=== PATIENT | male | born 1955 | race Caucasian/White ===

== ENCOUNTER 2022-01-18 19:57 | Inpatient (IN) | payer OTHER, BC ==
[~2022-01-18] VITALS: Ht 193 cm; Wt 105.2 kg
[2022-01-18 20:22] VITALS: BP_SYST 168
[2022-01-18] MEDS ORDERED: ASPI-1393 PO (20:30)
[2022-01-18] MEDS ORDERED: LISI40TA13 PO (20:30)
[2022-01-18] MEDS ORDERED: LIP40 PO (20:30)
[2022-01-18] MEDS ORDERED: UBID50TA3 PO (20:31)
[2022-01-18] MEDS ORDERED: OMEG100037 PO (20:31)
[2022-01-18] MEDS ORDERED: VITD400 PO (20:32)
[2022-01-18 21:38] LABS: HEMOGLOBIN 16.8 g/dL (14.0-18.0); WHITE BLOOD COUNT (AUTO) 8.7 K/uL (4.8-10.8)
[2022-01-18 21:40] LABS: ANION GAP 9 (5-15); CALCIUM 9.5 mg/dL (8.4-11.0); CHLORIDE 102 mmol/L (98-107); CREATININE 1.57 mg/dL (0.55-1.30); GLUCOSE 152 mg/dL (70-99); POTASSIUM 4.3 mmol/L (3.5-5.1); SODIUM SERUM 137 mmol/L (136-145); UREA NITROGEN, BLOOD 26 mg/dL (8-21)
[2022-01-18 21:42] LABS: BASOPHILS % (AUTO) 0.5 % (0.0-2.0); EOSINOPHILS % (AUTO) 0.4 % (0.0-4.0); HEMATOCRIT 48.5 % (36-54); LYMPHOCYTES # (AUTO) 1.2 K/uL (1.0-5.5); LYMPHOCYTES % (AUTO) 13.5 % (20.5-51.5); MEAN CORPUSCULAR HEMOGLOBIN 30 pg (27-31); MEAN CORPUSCULAR HGB CONC 35 % (32-36); MEAN CORPUSCULAR VOLUME 86 fL (79.0-98.0); MONOCYTES # (AUTO) 0.9 K/uL (0.0-1.0); NEUTROPHILS # (AUTO) 6.6 K/uL (1.8-7.7); NEUTROPHILS % (AUTO) 75.6 % (40.0-70.0); PLATELET COUNT (AUTO) 290 K/uL (130-430); RED BLOOD CELL COUNT(AUTO) 5.66 MIL/uL (4.2-6.2); RED CELL DISTRIBUTION WIDTH 14.4 % (9.0-15.0)
[2022-01-18 21:43] LABS: GFR AFRICAN AMERICAN 57 mL/min (>90)
[2022-01-18 21:48] LABS: ALANINE AMINOTRANSFERASE 26 U/L (12-78); ALBUMIN 3.7 g/dL (3.4-4.8); AMYLASE 32 U/L (0-100); ASPARTATE AMINOTRANSFERASE 20 U/L (10-37); C-REACTIVE PROTEIN QUANT 2.3 mg/dL (0-0.5); LIPASE 47 U/L (73-393); TOTAL BILIRUBIN 0.8 mg/dL (0.0-1.0)
[2022-01-18 21:56] LABS: INR 0.9 (0.80-1.20); PROTHROMBIN TIME 9.9 SECS (9.5-12.5)
[2022-01-18] MEDS ORDERED: NACL 0.9% 1,000 ML IV ONE (22:45)
[2022-01-18] MEDS ORDERED: KETOROLAC TROMETHAMINE 15 MG VIAL IVP ONE (22:45)
[2022-01-18] MEDS ORDERED: ONDANSETRON HCL 4 MG/2 ML VIAL IVP ONE ×2 (23:00)
[2022-01-18] MEDS ORDERED: MAG HYDROX/AL HYDROX/SIMETH 30 ML, LIDOCAINE VISCOUS 2% 15ML (PO) 15 ML, DICYCLOMINE HC... PO ONE ×3 (23:00)
[2022-01-18] MEDS ORDERED: ONDANSETRON HCL 4 MG/2 ML VIAL IVP PRN (23:45)
[2022-01-18] MEDS ORDERED: MORPHINE 4 MG INJ. 4 MG/ML VIAL IVP PRN (23:45)
[2022-01-18] MEDS ORDERED: LR 1,000 ML IV ONE (23:45)
[2022-01-19 00:33] LABS: BILIRUBIN,URINE 1+ (NEGATIVE); BLOOD, URINE NEGATIVE (NEGATIVE); CLARITY/URINE CLEAR (CLEAR); COLOR,URINE ORANGE (YELLOW); GLUCOSE,URINE NEGATIVE (NEGATIVE); KETONES,URINE NEGATIVE (NEGATIVE); LEUKOCYTE ESTERASE ,URINE NEGATIVE (NEGATIVE); NITRITE, URINE NEGATIVE (NEGATIVE); PROTEIN URINE 1+ (NEGATIVE)
[2022-01-19 02:34] VITALS: BP_SYST 148
[2022-01-19] MEDS: LR 1,000 ML IV SCH ×2 (03:15→15:40)
[2022-01-19 08:00] VITALS: BP_SYST 150
[2022-01-19] MEDS ORDERED: GASTROGRAFIN 120 ML ONE (09:41)
[2022-01-19 12:00] VITALS: BP_SYST 138
[2022-01-19 16:00] VITALS: BP_SYST 128
[2022-01-19 20:00] VITALS: BP_SYST 128
[2022-01-19 23:58] VITALS: BP_SYST 152
[2022-01-20] MEDS: LR 1,000 ML IV SCH ×2 (00:36→17:16)
[2022-01-20 07:12] LABS: BASOPHILS % (AUTO) 0.3 % (0.0-2.0); EOSINOPHILS % (AUTO) 0.3 % (0.0-4.0); HEMATOCRIT 43.5 % (36-54); HEMOGLOBIN 15.2 g/dL (14.0-18.0); LYMPHOCYTES # (AUTO) 1.2 K/uL (1.0-5.5); LYMPHOCYTES % (AUTO) 11.5 % (20.5-51.5); MEAN CORPUSCULAR HEMOGLOBIN 30 pg (27-31); MEAN CORPUSCULAR HGB CONC 35 % (32-36); MEAN CORPUSCULAR VOLUME 87 fL (79.0-98.0); MONOCYTES # (AUTO) 1.2 K/uL (0.0-1.0); MONOCYTES % (AUTO) 10.9 % (1.7-9.3); NEUTROPHILS # (AUTO) 8.3 K/uL (1.8-7.7); PLATELET COUNT (AUTO) 243 K/uL (130-430); RED BLOOD CELL COUNT(AUTO) 5.03 MIL/uL (4.2-6.2); RED CELL DISTRIBUTION WIDTH 14.2 % (9.0-15.0); WHITE BLOOD COUNT (AUTO) 10.8 K/uL (4.8-10.8)
[2022-01-20 07:53] LABS: PROTHROMBIN TIME 10.1 SECS (9.5-12.5)
[2022-01-20 08:00] VITALS: BP_SYST 148
[2022-01-20 08:14] LABS: ALBUMIN 3.3 g/dL (3.4-4.8); CALCIUM 8.9 mg/dL (8.4-11.0); CREATININE 1.29 mg/dL (0.55-1.30); POTASSIUM 3.7 mmol/L (3.5-5.1)
[2022-01-20] MEDS: ASPIRIN 81 MG TABLET(ECOTRIN) PO SCH (08:28)
[2022-01-20] MEDS: OMEGA-3/DHA/EPA/FISH OIL 1 GM CAPSULE PO SCH (08:29)
[2022-01-20] MEDS: CHOLECALCIFEROL (VITAMIN D-3) 400 UNIT TABLET PO SCH (08:29)
[2022-01-20] MEDS: lisinopriL 20 MG TABLET PO SCH (08:29)
[2022-01-20] MEDS: ATORVASTATIN 20 MG TABLET PO SCH (08:29)
[2022-01-20 12:00] VITALS: BP_SYST 142
[2022-01-20 16:00] VITALS: BP_SYST 134
[2022-01-20] MEDS ORDERED: FAMOTIDINE 20 MG TABLET PO ONE (16:00)
[2022-01-20 20:00] VITALS: BP_SYST 136
[2022-01-21] VITALS: BP_SYST 145
[2022-01-21] MEDS: LR 1,000 ML IV SCH (05:37)
[2022-01-21 06:18] LABS: BASOPHILS # (AUTO) 0.1 K/uL (0.0-0.2); BASOPHILS % (AUTO) 0.8 % (0.0-2.0); EOSINOPHILS # (AUTO) 0.2 K/uL (0.0-0.4); EOSINOPHILS % (AUTO) 1.9 % (0.0-4.0); HEMOGLOBIN 13.9 g/dL (14.0-18.0); LYMPHOCYTES # (AUTO) 1.4 K/uL (1.0-5.5); LYMPHOCYTES % (AUTO) 14.9 % (20.5-51.5); MEAN CORPUSCULAR HEMOGLOBIN 30 pg (27-31); MEAN CORPUSCULAR HGB CONC 35 % (32-36); MEAN CORPUSCULAR VOLUME 86 fL (79.0-98.0); MONOCYTES % (AUTO) 10.7 % (1.7-9.3); NEUTROPHILS # (AUTO) 6.8 K/uL (1.8-7.7); NEUTROPHILS % (AUTO) 71.7 % (40.0-70.0); PLATELET COUNT (AUTO) 210 K/uL (130-430); RED BLOOD CELL COUNT(AUTO) 4.65 MIL/uL (4.2-6.2); RED CELL DISTRIBUTION WIDTH 14.6 % (9.0-15.0); WHITE BLOOD COUNT (AUTO) 9.4 K/uL (4.8-10.8)
[2022-01-21 06:41] LABS: CALCIUM 8.5 mg/dL (8.4-11.0); CREATININE 1.01 mg/dL (0.55-1.30)
[2022-01-21 08:00] VITALS: BP_SYST 110
[2022-01-21] MEDS: FAMOTIDINE 20 MG TABLET PO SCH ×2 (09:00→10:17)
[2022-01-21] MEDS ORDERED: ONDA-8 TL (09:15)
[2022-01-21] MEDS ORDERED: HYDR-3917 PO (09:15)
[2022-01-21] MEDS ORDERED: FAMO20TA8 PO (09:15)
[2022-01-21] MEDS: CHOLECALCIFEROL (VITAMIN D-3) 400 UNIT TABLET PO SCH (10:17)
[2022-01-21] MEDS: OMEGA-3/DHA/EPA/FISH OIL 1 GM CAPSULE PO SCH (10:17)
[2022-01-21] MEDS: ASPIRIN 81 MG TABLET(ECOTRIN) PO SCH (10:17)
[2022-01-21] MEDS: ATORVASTATIN 20 MG TABLET PO SCH (10:17)
[2022-01-21] MEDS: lisinopriL 20 MG TABLET PO SCH (10:29)
[2022-01-21 12:00] VITALS: BP_SYST 124
[2022-01-21 13:12] VITALS: BP_SYST 147
== END 2022-01-21 13:40 | disposition home or self-care (01) | DRG 388 ==
LOC: SED 19:57 → SMU 23:34
PROVIDERS: ADMIT Preventive Medicine Preventive Medicine/Occupational Environmental Medicine; ATTEND Preventive Medicine Preventive Medicine/Occupational Environmental Medicine
DX: K56.609 Unspecified intestinal obstruction, unspecified as to partial versus complete obstruction (principal); N17.0 Acute kidney failure with tubular necrosis; E87.2 Acidosis; K42.9 Umbilical hernia without obstruction or gangrene; Z20.822 Contact with and (suspected) exposure to COVID-19; I10 Essential (primary) hypertension; E78.00 Pure hypercholesterolemia, unspecified; E78.5 Hyperlipidemia, unspecified; E55.9 Vitamin D deficiency, unspecified; R73.9 Hyperglycemia, unspecified; E87.70 Fluid overload, unspecified
CPT/HCPCS: 36415; 74018; 74250-TC; 76376; 80048; 80053; 81003; 82150; 83605; 83690; 84484; 85025; 85610-TC; 85730-TC; 86140; 96361; 96374; 96375; 99285; J1885; J2001; J2405; J7030; Q9963